=== PATIENT | male | born 1990 | race Caucasian/White ===

== ENCOUNTER 2023-08-22 14:19 | Inpatient (IN) | payer MEDICAID ==
[~2023-08-22] VITALS: Ht 162.6 cm; Wt 69.9 kg
[2023-08-22 16:44] LABS: BASOPHILS % (AUTO) 0.6 % (0.0-2.0); EOSINOPHILS % (AUTO) 0.9 % (1.0-6.0); HEMATOCRIT 45.9 % (41-53); HEMOGLOBIN 15.2 g/dL (13.5-17.5); LYMPHOCYTES % (AUTO) 26.9 % (22.0-44.0); MEAN CORPUSCULAR HEMOGLOBIN 29.2 pg (26.0-34.0); MEAN CORPUSCULAR VOLUME 88 fL (80-100); MONOCYTES # (AUTO) 0.7 K/uL (0.1-1.0); NEUTROPHILS # (AUTO) 4.6 K/uL (1.8-7.7); NEUTROPHILS % (AUTO) 62.6 % (40.0-70.0); PLATELET COUNT (AUTO) 235 K/uL (150-450); RED CELL DISTRIBUTION WIDTH 12.9 % (11.5-14.5); WHITE BLOOD COUNT (AUTO) 7.4 K/uL (4.5-11.0)
[2023-08-22 16:49] LABS: PH,URINE DRUG SCREEN 5.5 (5.0-8.0)
[2023-08-22 16:56] LABS: ALCOHOL, URINE DRUG SCREEN NEGATIVE (NEGATIVE); AMPHET/METH SCREEN,URINE POSITIVE (NEGATIVE); BARBITURATE SCREEN, URINE NEGATIVE (NEGATIVE); BENZODIAZEPINES SCREEN,URINE NEGATIVE (NEGATIVE); CANNABINOID SCREEN,URINE NEGATIVE (NEGATIVE); COCAINE SCREEN,URINE NEGATIVE (NEGATIVE); METHADONE SCREEN, URINE NEGATIVE (NEGATIVE); OPIATE SCREEN,URINE NEGATIVE (NEGATIVE); PHENCYCLIDINE SCREEN,URINE NEGATIVE (NEGATIVE)
[2023-08-22] MEDS ORDERED: INS7030 SQ (16:56)
[2023-08-22 17:00] LABS: ANION GAP 8 mmol/L (8-16); CALCIUM, TOTAL 9.5 mg/dL (8.8-10.5); CARBON DIOXIDE 30 mmol/L (22-29); CHLORIDE 97 mmol/L (98-107); GLOMERULAR FILTR. RATE CALC > 60 mL/min (>60); GLUCOSE,RANDOM 222 mg/dL (70-110); POTASSIUM 3.6 mmol/L (3.5-5.1); SODIUM SERUM 135 mmol/L (136-145); UREA NITROGEN, BLOOD 10 mg/dL (7-18)
[2023-08-22 17:02] LABS: ALANINE AMINOTRANSFERASE 44 U/L (12-78); ALBUMIN 4.1 g/dL (3.4-5.0); ALKALINE PHOSPHATASE 189 U/L (46-116); ASPARTATE AMINOTRANSFERASE 25 U/L (15-37); BILIRUBIN,TOTAL 1.1 mg/dL (0.1-1.0); TOTAL PROTEIN, SERUM 8.6 g/dL (6.4-8.2)
[2023-08-22 17:09] LABS: ALCOHOL, BLOOD (SERUM) < 3 mg/dL (0-10)
[2023-08-22 17:43] LABS: COVID AG,FIA SOURCE NASAL SWAB
[2023-08-22 18:14] LABS: SARS-COV2 (COVID) ANTIGEN,FIA Negative (Negative)
[2023-08-22] MEDS ORDERED: OLAN10TA22 PO (20:15)
[2023-08-22] MEDS: LORazepam 1 MG TABLET PO ONE (20:24)
[2023-08-22] MEDS: OLANZapine 10 MG TABLET PO ONE (20:24)
[2023-08-22] MEDS ORDERED: LORazepam 2 MG/ML VIAL ONE (20:45)
[2023-08-22] MEDS ORDERED: DiphenhydrAMINE HCL 50 MG/ML VIAL ONE (20:45)
[2023-08-22] MEDS ORDERED: HALOPERIDOL LACTATE 5 MG/ML VIAL ONE (20:45)
[2023-08-22] MEDS: LORazepam 2 MG/ML VIAL IM ONE (20:54)
[2023-08-22] MEDS: DiphenhydrAMINE HCL 50 MG/ML VIAL IM ONE (20:54)
[2023-08-22] MEDS: HALOPERIDOL LACTATE 5 MG/ML VIAL IM ONE (20:54)
[2023-08-22] MEDS ORDERED: LORazepam 2 MG TABLET PO PRN (22:00)
[2023-08-22] MEDS ORDERED: ZOLPIDEM TARTRATE 10 MG TABLET PO PRN (22:00)
[2023-08-22] MEDS ORDERED: HALOPERIDOL 5 MG TABLET PO PRN (22:00)
[2023-08-23 01:08] VITALS: BP 112/77; PULSE 86; RESP 18; TEMP 97.7; O2SAT 96
[2023-08-23] MEDS ORDERED: PNEUMOCOCCAL VACCINE POLYVALENT 0.5 ML SYRINGE [PPSV23] IM. ONE (05:15)
[2023-08-23] MEDS ORDERED: CloNIDine HCL 0.1 MG TABLET PO PRN (06:45)
[2023-08-23] MEDS ORDERED: NICOTINE 14 MG/24 HOUR PATCH TD PRN (06:45)
[2023-08-23] MEDS ORDERED: IBUPROFEN 400 MG TABLET PO PRN (06:45)
[2023-08-23] MEDS ORDERED: GuaiFENesin/D-METHORPHAN [SUGAR-FREE] 200-20MG/10 ML SYRUP UDCUP PO PRN (06:45)
[2023-08-23] MEDS ORDERED: ACETAMINOPHEN 325 MG TABLET PO PRN (06:45)
[2023-08-23] MEDS ORDERED: LOPERAMIDE HCL 2 MG CAPSULE PO PRN (06:45)
[2023-08-23] MEDS ORDERED: DEXTROSE 50%-WATER 25 GM/50 ML SYRINGE IVP PRN (06:45)
[2023-08-23] MEDS ORDERED: PETROLATUM,WHITE 28 GM JELLY TP PRN (06:45)
[2023-08-23] MEDS ORDERED: DOCUSATE SODIUM 100 MG CAPSULE PO PRN (06:45)
[2023-08-23] MEDS ORDERED: ONDANSETRON HCL 4 MG TABLET PO PRN (06:45)
[2023-08-23] MEDS ORDERED: MAG HYDROX/ALUMINUM HYD/SIMETH ES 30 ML SUSPENSION UDCUP PO PRN (06:45)
[2023-08-23] MEDS ORDERED: ALBUTEROL SULFATE HFA 90 MCG/PUFF 8 GM INHALER IH PRN (06:45)
[2023-08-23] MEDS ORDERED: MAGNESIUM HYDROXIDE SUSPENSION 30 ML UDCUP PO PRN (06:45)
[2023-08-23] MEDS ORDERED: GLUCAGON,HUMAN RECOMBINANT 1 MG VIAL SQ PRN (07:00)
[2023-08-23] MEDS: INSULIN HUMAN NPH-REGULAR 70/30 100 UNITS/ML SQ SCH (08:53)
[2023-08-23 09:02] VITALS: RESP 18
[2023-08-23] MEDS: INSULIN LISPRO 100 UNITS/ML SQ PRN (11:42)
[2023-08-23] MEDS: OLANZapine 10 MG TABLET PO SCH (21:44)
[2023-08-24 06:21] LABS: GLUCOMETER DEV NAME(LOC) BV3N.; GLUCOSE,POINT OF CARE 214 MG/DL (70-110)
[2023-08-24 07:19] VITALS: BP 131/99; PULSE 107; RESP 20; TEMP 98.7; O2SAT 98
[2023-08-24 08:15] LABS: HEMOGLOBIN A1C 10.3 % (3.8-5.6)
[2023-08-24 08:57] LABS: CHOL/HDL RATIO 3.9 (4.2-7.3); FREE T4 (FREE THYROXINE) 0.9 ng/dL (0.76-1.46)
[2023-08-24] MEDS: INSULIN LISPRO 100 UNITS/ML SQ ONE (09:11)
[2023-08-24 09:16] LABS: THYROID STIMULATING HORMONE 0.92 uIU/mL (0.36-3.74)
[2023-08-24 09:36] LABS: GLUCOMETER DEV NAME(LOC) BV3N.; GLUCOSE,POINT OF CARE 458 MG/DL (70-110)
[2023-08-24 10:53] VITALS: BP 141/79; PULSE 89; RESP 18; TEMP 96.9; O2SAT 99
[2023-08-24 12:16] LABS: GLUCOMETER DEV NAME(LOC) BV3N.; GLUCOSE,POINT OF CARE 199 MG/DL (70-110)
[2023-08-24 18:51] LABS: GLUCOMETER DEV NAME(LOC) BV3N.; GLUCOSE,POINT OF CARE 263 MG/DL (70-110)
[2023-08-24 22:40] VITALS: BP 106/75; PULSE 90; RESP 16; TEMP 97.4; O2SAT 99
[2023-08-25 00:16] LABS: GLUCOMETER DEV NAME(LOC) BV3N.; GLUCOSE,POINT OF CARE 115 MG/DL (70-110)
[2023-08-25 00:16] LABS: GLUCOMETER DEV NAME(LOC) BV3N.; GLUCOSE,POINT OF CARE 61 MG/DL (70-110)
[2023-08-25] MEDS: INSULIN LISPRO 100 UNITS/ML SQ PRN (06:44)
[2023-08-25 06:45] LABS: GLUCOMETER DEV NAME(LOC) BV3N.; GLUCOSE,POINT OF CARE 203 MG/DL (70-110)
[2023-08-25 09:36] VITALS: RESP 18; TEMP 97.7
[2023-08-25 12:00] LABS: GLUCOMETER DEV NAME(LOC) BV3N.; GLUCOSE,POINT OF CARE 401 MG/DL (70-110)
[2023-08-25] MEDS ORDERED: GLUCAGON,HUMAN RECOMBINANT 1 MG VIAL IM PRN (15:00)
[2023-08-25] MEDS: INSULIN LISPRO 100 UNITS/ML SQ ONE (15:17)
[2023-08-25] MEDS: INSULIN HUMAN NPH-REGULAR 70/30 100 UNITS/ML SQ SCH (17:00)
[2023-08-25 17:15] LABS: GLUCOMETER DEV NAME(LOC) BV2S.; GLUCOSE,POINT OF CARE 81 MG/DL (70-110)
[2023-08-25 17:15] LABS: GLUCOMETER DEV NAME(LOC) BV2S.; GLUCOSE,POINT OF CARE 48 MG/DL (70-110)
[2023-08-25 20:00] VITALS: BP 117/85; PULSE 89; RESP 18; TEMP 96.1; O2SAT 99
[2023-08-25 20:35] LABS: GLUCOMETER DEV NAME(LOC) BV2S.; GLUCOSE,POINT OF CARE 363 MG/DL (70-110)
[2023-08-25] MEDS: INSULIN HUMAN NPH-REGULAR 70/30 100 UNITS/ML SQ ONE (21:20)
[2023-08-26 06:16] LABS: GLUCOMETER DEV NAME(LOC) BV2S.; GLUCOSE,POINT OF CARE 137 MG/DL (70-110)
[2023-08-26 08:54] VITALS: BP 104/75; PULSE 84; RESP 17; TEMP 97.5; O2SAT 100
[2023-08-26 10:26] LABS: GLUCOMETER DEV NAME(LOC) BV2S.; GLUCOSE,POINT OF CARE 414 MG/DL (70-110)
[2023-08-26] MEDS: INSULIN LISPRO 100 UNITS/ML SQ PRN (11:51)
[2023-08-26 13:16] LABS: GLUCOMETER DEV NAME(LOC) BV2S.; GLUCOSE,POINT OF CARE 318 MG/DL (70-110)
[2023-08-26 16:56] LABS: GLUCOMETER DEV NAME(LOC) BV2S.; GLUCOSE,POINT OF CARE 86 MG/DL (70-110)
[2023-08-26] MEDS ORDERED: INSULIN HUMAN NPH-REGULAR 70/30 100 UNITS/ML SQ ONE (20:00)
[2023-08-26] MEDS: INSULIN HUMAN NPH-REGULAR 70/30 100 UNITS/ML SQ ONE (20:09)
[2023-08-26 20:11] LABS: GLUCOMETER DEV NAME(LOC) BV2S.; GLUCOSE,POINT OF CARE 312 MG/DL (70-110)
[2023-08-26 21:06] VITALS: BP 129/88; PULSE 91; RESP 18; TEMP 97.6; O2SAT 97
[2023-08-27 02:21] LABS: GLUCOMETER DEV NAME(LOC) BV2S.; GLUCOSE,POINT OF CARE 387 MG/DL (70-110)
[2023-08-27 06:46] LABS: GLUCOMETER DEV NAME(LOC) BV2S.; GLUCOSE,POINT OF CARE 240 MG/DL (70-110)
[2023-08-27] MEDS: INSULIN HUMAN NPH-REGULAR 70/30 100 UNITS/ML SQ SCH ×2 (08:26→22:03)
[2023-08-27 08:41] VITALS: BP 120/79; PULSE 74; RESP 17; TEMP 97.3; O2SAT 98
[2023-08-27 17:01] LABS: GLUCOMETER DEV NAME(LOC) BV2S.; GLUCOSE,POINT OF CARE 139 MG/DL (70-110)
[2023-08-27 17:01] LABS: GLUCOMETER DEV NAME(LOC) BV2S.; GLUCOSE,POINT OF CARE 357 MG/DL (70-110)
[2023-08-27 17:01] LABS: GLUCOMETER DEV NAME(LOC) BV2S.; GLUCOSE,POINT OF CARE 444 MG/DL (70-110)
[2023-08-27 22:10] LABS: GLUCOMETER DEV NAME(LOC) BV2S.; GLUCOSE,POINT OF CARE 343 MG/DL (70-110)
[2023-08-27 23:03] VITALS: BP 150/56; PULSE 89; RESP 16; TEMP 97.9; O2SAT 98
[2023-08-28 08:26] LABS: GLUCOMETER DEV NAME(LOC) BV2S.; GLUCOSE,POINT OF CARE 79 MG/DL (70-110)
[2023-08-28 08:41] LABS: GLUCOMETER DEV NAME(LOC) BV2S.; GLUCOSE,POINT OF CARE 342 MG/DL (70-110)
[2023-08-28 08:52] VITALS: BP 106/74; PULSE 82; RESP 17; TEMP 97.7; O2SAT 98
[2023-08-28 12:01] LABS: GLUCOMETER DEV NAME(LOC) BV2S.; GLUCOSE,POINT OF CARE 231 MG/DL (70-110)
[2023-08-28] MEDS ORDERED: OLAN10TA74 PO (12:09)
[2023-08-28 16:41] LABS: GLUCOMETER DEV NAME(LOC) BV2X.2; GLUCOSE,POINT OF CARE 288 MG/DL (70-110)
== END 2023-08-28 17:25 | disposition home or self-care (01) | DRG 750 ==
LOC: EMS 14:23 → B3A 22:07 → B2S 08-25 15:37
PROVIDERS: ADMIT Psychiatry & Neurology Psychiatry; ATTEND Psychiatry & Neurology Psychiatry
PROC: GZHZZZZ Group Psychotherapy (ICD-10-PCS; principal; 2023-08-23)
DX: F20.0 Paranoid schizophrenia (principal); R45.851 Suicidal ideations; E87.1 Hypo-osmolality and hyponatremia; F15.10 Other stimulant abuse, uncomplicated; F41.9 Anxiety disorder, unspecified; E11.65 Type 2 diabetes mellitus with hyperglycemia; Z20.822 Contact with and (suspected) exposure to COVID-19; G47.00 Insomnia, unspecified; F32.A Depression, unspecified
CPT/HCPCS: 80053; 80061; 80307; 82962; 83036; 84439; 84443; 85025; 99285; G0480; J1200; J1630; J1815; J2060